=== PATIENT | female | born 1945 | race Hispanic/Latino ===

== ENCOUNTER 2017-03-16 12:11 | Emergency (ER) | payer SELFPAY ==
[2017-03-16 12:28] VITALS: BP 157/69
[2017-03-16 12:51] LABS: Hematocrit 44.6 % (30.3-42.9); Hemoglobin 14.9 gm/dl (10.1-14.3); Mean Corpuscular HGB Conc 33 % (30-34); Mean Corpuscular Hemoglobin 30 pg (28-32); Mean Corpuscular Volume 90 fl (79-97); Platelet Count 210 K/mm3 (140-440); Red Blood Count 4.96 M/mm3 (3.65-5.03); Red Cell Distribution Width 13.2 % (13.2-15.2); White Blood Count 5.1 K/mm3 (4.5-11.0)
[2017-03-16 13:08] LABS: Anion Gap 17 mmol/L; Blood Urea Nitrogen 18 mg/dL (7-17); Calcium 9.6 mg/dL (8.4-10.2); Carbon Dioxide 28 mmol/L (22-30); Chloride 101.7 mmol/L (98-107); Glucose 117 mg/dL (65-100); Potassium 4.3 mmol/L (3.6-5.0); Sodium 142 mmol/L (137-145)
[2017-03-16 13:42] LABS: Bacteria,Urine 1+ /HPF (Negative); Bilirubin,Urine NEG (Negative); Blood,Urine NEG (Negative); Ketones,Urine NEG (Negative); Leukocyte Esterase,Urine LG (Negative); Mucus,Urine FEW /HPF; Nitrite,Urine NEG (Negative); Protein,Urine <15 mg/dL mg/dL (Negative); Urobilinogen,Urine < 2.0 mg/dL (<2.0)
--- NOTE | 2017-03-17 14:10 | ED Elopement Review ---
ED Pt Elopement review - Results review Lab results: Laboratory Tests 03/16/17 03/16/17 03/16/17 12:39 12:39 12:49 WBC 5.1 RBC 4.96 Hgb 14.9 H Hct 44.6 H MCV 90 MCH 30 MCHC 33 RDW 13.2 Plt Count 210 Sodium 142 Potassium 4.3 Chloride 101.7 Carbon Dioxide 28 Anion Gap 17 BUN 18 H Creatinine 0.8 Estimated GFR > 60 BUN/Creatinine Ratio 22.50 Glucose 117 H Calcium 9.6 Urine Color Yellow Urine Turbidity Slightly-cloudy Urine pH 5.0 Ur Specific [place] 1.014 Urine Protein <15 mg/dl Urine Glucose (UA) Neg Urine Ketones Neg Urine Blood Neg Urine Nitrite Neg Urine Bilirubin Neg Urine Urobilinogen < 2.0 Ur Leukocyte Esterase Lg Urine WBC (Auto) 16.0 H Urine RBC (Auto) 9.0 U Epithel Cells (Auto) 16.0 H Urine Bacteria (Auto) 1+ Hyaline Casts 1 Urine Mucus Few - Call Back decision Pt Call Back Decision: Pt to F/U with PMD
== END 2017-03-16 17:25 | disposition left against medical advice (07) ==
LOC: ED 12:11
DX: R42 Dizziness and giddiness (principal); R11.2 Nausea with vomiting, unspecified; E78.00 Pure hypercholesterolemia, unspecified; Z53.21 Procedure and treatment not carried out due to patient leaving prior to being seen by health care provider
CPT/HCPCS: 36415; 80048; 81001; 85027; 93005; 93010